=== PATIENT | female | born 1995 | race Caucasian/White ===

== ENCOUNTER → 2018-05-18 13:17 | Outpatient (CLI) | payer OTHER, SELFPAY ==
--- NOTE | 2018-05-18 13:18 | DI.MRI.S_ITS ---
PROCEDURE: MR HEAD/BRAIN WO CON INDICATIONS: Headache, confusion, and vertigo TECHNIQUE: Noncontrast axial T1 spin echo, axial T2 fast spin echo, sagittal and axial FLAIR, coronal T2 fast spin echo, axial gradient echo, axial diffusion and ADC through the brain. COMPARISON: None. FINDINGS: Image quality: Excellent. CSF Spaces: Basal cisterns are patent. No extra-axial fluid collections. Ventricles are normal in size and shape. Brain: No intracranial masses or hemorrhage. Garcia/white matter interface is normal. Brainstem appears normal. Diffusion-weighted images demonstrate no acute ischemic insult. No chronic ischemic insults. Normal intravascular flow voids are present. Skull and face: Calvarium has normal marrow signal. Orbits appear normal. Sinuses: Sinuses are demonstrate near complete opacification within the maxillary, sphenoid, ethmoid and frontal sinuses. The most significantly affected are the sphenoid and left maxillary sinuses. Ostiomeatal complexes appear occluded bilaterally. IMPRESSION: 1. No acute intracranial process. 2. Significant pansinus mucosal thickening as above. Dictated by: Karyna Marroquin M.D. on 05/18/2018 at 16:12 Approved by: Karyna Marroquin M.D. on 05/18/2018 at 16:28
== END ==
PROVIDERS: PCP Family Medicine; Visit Provider Specialist
DX: R51 Headache (principal); R41.0 Disorientation, unspecified; R42 Dizziness and giddiness; J32.4 Chronic pansinusitis; R26.89 Other abnormalities of gait and mobility
CPT/HCPCS: 70551